=== PATIENT | male | born 1970 | race African-American/Black ===

== ENCOUNTER 2016-07-24 18:52 | Emergency (ER) | payer BC ==
[~2016-07-24 18:52] MED LIST: AMOXICILLIN500 M1 PO; FLONASE16 GM
== END 2016-07-24 19:10 | disposition home or self-care (01) ==
LOC: CFTX 18:52
DX: J02.9 Acute pharyngitis, unspecified (principal)
CPT/HCPCS: 87651; 99282; 99283

== ENCOUNTER 2016-07-28 16:20 | Emergency (ER) | payer BC ==
--- NOTE | ~2016-07-28 | EKG ---
PATIENT: REX CHRIS UNIT #: [id number] Ventricular Rate: 75 BPM Atrial Rate: 75 BPM P-R Interval: 150 ms QRS Duration: 82 ms Q-T Interval: 380 ms QTC Calculation(Bezet): 424 ms P [place]: 53 degrees Calculated R [place]: -10 degrees Calculated T [place]: -6 degrees Diagnosis Line: Normal sinus rhythm Diagnosis Line: Normal ECG Diagnosis Line: No previous ECGs available Diagnosis Line: Confirmed by CHRISTINA BRIDGES MD ([id number]) on 07/29/2016 Diagnosis Line: 8:00:06 PM INTERPRETING MD: YULIANA PRECIADO
[2016-07-28 15:43] LABS: BASOPHIL% 0.6 % (0-2.5); EOSINOPHIL# 0.2 X10e3 (0-0.7); EOSINOPHIL% 3.5 % (0.0-7.0); HEMATOCRIT 42.7 % (38.0-50.0); HEMOGLOBIN 13.7 gm/dL (13.0-16.0); LYMPHOCYTE# 2.9 X10e3 (1.0-3.5); LYMPHOCYTE% 43.3 % (17.0-45.0); MEAN CELL VOLUME 82.7 FL (83-96); MEAN CORPUSCULAR HEMOGLOBIN 26.5 PG (28-34); MEAN CORPUSCULAR HGB CONC 32.1 g/dL (30-36); MONOCYTE# 0.5 X10e3 (0-1.0); MONOCYTE% 6.8 % (3.0-12.0); NEUTROPHIL# 3.1 X10e3 (1.5-7.1); NEUTROPHIL% 45.8 % (40-75); PLATELET COUNT 182 X10e3 (140-420); RED BLOOD COUNT 5.17 X10e (3.90-5.60); RED CELL DISTRIBUTION WIDTH 13.2 % (11.0-15.5); WHITE BLOOD COUNT 6.8 X10e3 (4.0-10.5)
[2016-07-28 15:44] LABS: DIFF IND NO
[2016-07-28 15:56] LABS: POC - CKMB 1.4 ng/mL (0.0-7.9); POC - TROPONIN <0.05 ng/mL (<=0.05)
[2016-07-28 16:13] LABS: BUN/CREATININE RATIO 10.9; CREATININE SERUM 1.1 mg/dL (0.6-1.4); GLOM FILT RATE Estimated 92.8 mL/min (>60); POTASSIUM 3.9 mmol/L (3.5-5.1)
[2016-07-28 17:33] LABS: POC - CKMB 1.5 ng/mL (0.0-7.9); POC - TROPONIN <0.05 ng/mL (<=0.05)
== END 2016-07-28 18:26 | disposition home or self-care (01) ==
LOC: CED 16:20
PROVIDERS: Emergency Medicine
DX: R94.31 Abnormal electrocardiogram [ECG] [EKG] (principal)
CPT/HCPCS: 36415; 80048; 82553; 84484; 85025; 93005; 99283